=== PATIENT | male | born 1995 | race Caucasian/White ===

== ENCOUNTER 2017-07-27 17:35 | Emergency (ER) | payer OTHER ==
[~2017-07-27] VITALS: Ht 177.8 cm; Wt 60.0 kg
[~2017-07-27 17:35] MED LIST: MMW SWISH-SWAL
[2017-07-27 17:43] VITALS: BP 143/66; PULSE 91; RESP 18; TEMP 99; O2SAT 100
[2017-07-27] MEDS ORDERED: CEPH500T PO (20:17)
[2017-07-27] MEDS ORDERED: SMZ-TMP DS (20:17)
[2017-07-27 20:19] VITALS: BP 140/75; PULSE 83; RESP 16; TEMP 98.3; O2SAT 100
[2017-07-27] MEDS ORDERED: SODIUM CHLOR 0.9% 1000 ML INJ 1,000 ML IV SCH (20:27)
[2017-07-27] MEDS ORDERED: KETOROLAC TROMETHAMINE 30 MG/ML (IVP) VIAL IVP ONE (20:30)
--- NOTE | 2017-07-27 20:34 | PD ---
HPI Chief Complaint: Skin Problem Time Seen by Provider: 20:14 Travel History International Travel<30 days: No Contact w/Intl Traveler<30days: No Traveled to known affect area: No History of Present Illness HPI 21-year-old male with no significant past medical history presents for evaluation of an area of skin redness on the anterior right knee. It started as a small pimple looking lesion 6 days ago and since then he has had increased area of redness and tenderness, aching, worse when walking. He was seen yesterday at [facility] where he was prescribed Bactrim and Keflex. He is taking a total of 3 doses. The area of redness has worsened and this is what prompted evaluation. Denies any IV drug use. Denies any fevers or chills. He has no other complaints at this time. FORMERLY [facility], [facility]–1983 Past Medical History Medical History: Denies Significant Hx Past Surgical History Surgical History: No Previous Surgery Social History Alcohol Use: No Tobacco Use: No Substance Use: No Allergies-Medications (Allergen,Severity, Reaction): Coded Allergies: No Known Allergies (Unverified , 07/25/15) Reported Meds & Prescriptions Reported Meds & Active Scripts Active Reported [Smz-Tmp Ds] Cephalexin 500 Mg Tab 500 Mg PO Q12H Review of Systems Except as stated in HPI: all other systems reviewed are Neg Physical Exam Narrative GENERAL: Well-developed well-nourished male in no acute distress SKIN: Warm and dry. Examination of the right leg reveals an area of induration and erythema to the anterior right knee with a small posterior lesion. A wound culture was performed. There is no fluctuance. There is some proximal erythematous streaking up the medial right thigh. There is tender inguinal lymphadenopathy on the right side. HEAD: Atraumatic. Normocephalic. EYES: Pupils equal and round. No scleral icterus. No injection or drainage. ENT: No nasal bleeding or discharge. Mucous membranes pink and moist. NECK: Trachea midline. No JVD. CARDIOVASCULAR: Regular rate and rhythm. No murmur appreciated. RESPIRATORY: No accessory muscle use. Clear to auscultation. Breath sounds equal bilaterally. GASTROINTESTINAL: Abdomen soft, non-tender, nondistended. Hepatic and splenic margins not palpable. MUSCULOSKELETAL: Skin as noted above. There is no evidence of right knee joint effusion. The patient maintains full range of motion of the right knee. There is pain to the skin of the anterior right knee with range of motion. Distal sensation and pulses are preserved. Data Data Last Documented VS Vital Signs Date Time Temp Pulse Resp B/P (MAP) Pulse Ox O2 Delivery O2 Flow Rate FiO2 07/27/17 20:19 98.3 83 16 140/75 (96) 100 Orders Orders Complete Blood Count With Diff (07/27/17 20:27) Basic Metabolic Panel (Bmp) (07/27/17 20:27) Sodium Chlor 0.9% 1000 Ml Inj (Ns 1000 M (07/27/17 20:27) Ketorolac Inj (Toradol Inj) (07/27/17 20:30) Iv Access Insert/Monitor (07/27/17 20:27) Wound Culture And Gram Stain (07/27/17 20:27) Asp:No Reaction To [facility]/Vanc (Asp Crit (07/27/17 21:30) Asp: Does Not Meet Inpt Admit (Asp Crit: (07/27/17 21:30) Asp: Iv Antibiotics Admit Only (Asp Crit (07/27/17 21:30) Asp: Location Of [facility] Admin (Asp Crit: (07/27/17 21:30) Pharmacy Information (07/27/17 21:30) [facility] Inj ([facility] Inj) (07/27/17 21:22) Ed Discharge Order (07/27/17 21:24) Labs Laboratory Tests Test 07/27/17 20:33 White Blood Count 12.5 TH/MM3 Red Blood Count 4.92 MIL/MM3 Hemoglobin 14.2 GM/DL Hematocrit 42.7 % Mean Corpuscular Volume 86.9 FL Mean Corpuscular Hemoglobin 28.9 PG Mean Corpuscular Hemoglobin Concent 33.3 % Red Cell Distribution Width 12.8 % Platelet Count 274 TH/MM3 Mean Platelet Volume 7.3 FL Neutrophils (%) (Auto) 67.0 % Lymphocytes (%) (Auto) 20.1 % Monocytes (%) (Auto) 10.2 % Eosinophils (%) (Auto) 2.4 % Basophils (%) (Auto) 0.3 % Neutrophils # (Auto) 8.3 TH/MM3 Lymphocytes # (Auto) 2.5 TH/MM3 Monocytes # (Auto) 1.3 TH/MM3 Eosinophils # (Auto) 0.3 TH/MM3 Basophils # (Auto) 0.0 TH/MM3 CBC Comment DIFF FINAL Differential Comment Blood Urea Nitrogen 13 MG/DL Creatinine 1.07 MG/DL Random Glucose 93 MG/DL Calcium Level 8.7 MG/DL Sodium Level 138 MEQ/L Potassium Level 4.0 MEQ/L Chloride Level 102 MEQ/L Carbon Dioxide Level 28.8 MEQ/L Anion Gap 7 MEQ/L Estimat Glomerular Filtration Rate 87 ML/MIN MDM Medical Decision Making Medical Screen Exam Complete: Yes Emergency Medical Condition: Yes Medical Record Reviewed: Yes Differential Diagnosis Cellulitis, septic bursitis, septic arthritis, lymphangitis Narrative Course 21-year-old healthy male presents with worsening cellulitis to the anterior right knee despite starting Bactrim and Keflex yesterday. On examination he has cellulitis to the anterior right knee with a small pustular lesion, wound culture was obtained. There is no evidence of a septic arthritis or bursitis. Plan is for basic lab work, IV fluids. Lab work has been reviewed. WBC count is 12.5. His lab work is otherwise unremarkable. This patient will make an excellent [facility] candidate and thus it has been ordered. The Bactrim and Keflex will be discontinued. I discussed signs and symptoms that would warrant returning to the emergency room such as signs of sepsis or septic arthritis and he verbalizes understanding. He is stable for discharge. Wound cultures pending. Diagnosis Primary Impression: Cellulitis of knee, right Additional Instructions: Medication as prescribed. Warm compresses several times a day 20 minutes at a time to the affected area. Elevate. Return for new or worsening symptoms such as increasing redness, fevers, increasing swelling in the knee joint. Med/Other Pt SpecificInfo: No Change to Meds Disposition: 01 DISCHARGE HOME Condition: Stable Hilton Gibbs Jul 27, 2017 20:34
[2017-07-27 21:08] LABS: AUTOMATED NEUTROPHIL # 8.3 TH/MM3 (1.8-7.7); BASOPHIL % 0.3 % (0.0-2.0); EOSINOPHIL # 0.3 TH/MM3 (0-0.4); EOSINOPHIL % 2.4 % (0.0-4.0); HEMATOCRIT 42.7 % (39.0-51.0); HEMOGLOBIN 14.2 GM/DL (13.0-17.0); LYMPH % 20.1 % (9.0-44.0); LYMPHOCYTE # 2.5 TH/MM3 (1.0-4.8); MEAN CELL VOLUME 86.9 FL (80.0-100.0); MEAN CORPUSCULAR HEMOGLOBIN 28.9 PG (27.0-34.0); MEAN CORPUSCULAR HGB CONC 33.3 % (32.0-36.0); MEAN PLATELET VOLUME 7.3 FL (7.0-11.0); MONO % 10.2 % (0.0-8.0); MONOCYTE # 1.3 TH/MM3 (0-0.9); PLATELET COUNT 274 TH/MM3 (150-450); RED BLOOD COUNT 4.92 MIL/MM3 (4.50-5.90); RED CELL DISTRIBUTION WIDTH 12.8 % (11.6-17.2); WHITE BLOOD COUNT 12.5 TH/MM3 (4.0-11.0)
[2017-07-27 21:20] LABS: BICARBONATE 28.8 MEQ/L (21.0-32.0); CALCIUM 8.7 MG/DL (8.5-10.1); CREATININE 1.07 MG/DL (0.60-1.30)
[2017-07-27] MEDS ORDERED: DALBAVANCIN INJ 1,500 MG in DEXTROSE 5% IN WATE 500 ML INJ 500 ML IV STA ×2 (21:22)
--- NOTE | 2017-07-27 21:27 | PD ---
Physical Exam Date Seen by Provider: Jul 27, 2017 Data Data Last Documented VS Vital Signs Date Time Temp Pulse Resp B/P (MAP) Pulse Ox O2 Delivery O2 Flow Rate FiO2 07/27/17 20:19 98.3 83 16 140/75 (96) 100 Orders Orders Complete Blood Count With Diff (07/27/17 20:27) Basic Metabolic Panel (Bmp) (07/27/17 20:27) Sodium Chlor 0.9% 1000 Ml Inj (Ns 1000 M (07/27/17 20:27) Ketorolac Inj (Toradol Inj) (07/27/17 20:30) Iv Access Insert/Monitor (07/27/17 20:27) Wound Culture And Gram Stain (07/27/17 20:27) Asp:No Reaction To [facility]/Vanc (Asp Crit (07/27/17 21:30) Asp: Does Not Meet Inpt Admit (Asp Crit: (07/27/17 21:30) Asp: Iv Antibiotics Admit Only (Asp Crit (07/27/17 21:30) Asp: Location Of [facility] Admin (Asp Crit: (07/27/17 21:30) [facility] [place] [facility] Information ([facility] [place] [facility] (07/27/17 21:30) [facility] Inj ([facility] Inj) (07/27/17 21:22) Ed Discharge Order (07/27/17 21:24) Labs Laboratory Tests Test 07/27/17 20:33 White Blood Count 12.5 TH/MM3 Red Blood Count 4.92 MIL/MM3 Hemoglobin 14.2 GM/DL Hematocrit 42.7 % Mean Corpuscular Volume 86.9 FL Mean Corpuscular Hemoglobin 28.9 PG Mean Corpuscular Hemoglobin Concent 33.3 % Red Cell Distribution Width 12.8 % Platelet Count 274 TH/MM3 Mean Platelet Volume 7.3 FL Neutrophils (%) (Auto) 67.0 % Lymphocytes (%) (Auto) 20.1 % Monocytes (%) (Auto) 10.2 % Eosinophils (%) (Auto) 2.4 % Basophils (%) (Auto) 0.3 % Neutrophils # (Auto) 8.3 TH/MM3 Lymphocytes # (Auto) 2.5 TH/MM3 Monocytes # (Auto) 1.3 TH/MM3 Eosinophils # (Auto) 0.3 TH/MM3 Basophils # (Auto) 0.0 TH/MM3 CBC Comment DIFF FINAL Differential Comment Blood Urea Nitrogen 13 MG/DL Creatinine 1.07 MG/DL Random Glucose 93 MG/DL Calcium Level 8.7 MG/DL Sodium Level 138 MEQ/L Potassium Level 4.0 MEQ/L Chloride Level 102 MEQ/L Carbon Dioxide Level 28.8 MEQ/L Anion Gap 7 MEQ/L Estimat Glomerular Filtration Rate 87 ML/MIN MDM Medical Record Reviewed: Yes Supervised Visit with GHADA: Yes Narrative Course I, Dr. Zelaya, have reviewed the advance practice practitioner's documentation and am in agreement, met with the patient face to face, made the diagnosis, and the medical decision making was done by me. *My assessment and Findings: Cellulitis Mima Zelaya DO Jul 27, 2017 21:27
[2017-07-27] MEDS ORDERED: ASP: Only reason for admit - IV antibiotics OTHER ONE (21:30)
[2017-07-27] MEDS ORDERED: TETANUS/DIPHTHERIA TOXOID ADULT 0.5 ML VIAL IM ONE (21:30)
[2017-07-27] MEDS ORDERED: ASP: Location of Dalbavancin administration OTHER ONE (21:30)
[2017-07-27] MEDS ORDERED: ASP: No known hypersensitivity to Vanco, Telavancin, Dalbavancin OTHER ONE (21:30)
[2017-07-27] MEDS ORDERED: ASP: Does not meet inpatient admission criteria OTHER ONE (21:30)
[2017-07-27] MEDS ORDERED: MISCELLANEOUS PHARMACY INFORMATION XX ONE (21:30)
== END 2017-07-27 23:54 | disposition home or self-care (01) ==
LOC: NEPD 17:35
DX: L03.115 Cellulitis of right lower limb (principal); Z23 Encounter for immunization
CPT/HCPCS: 80048; 85025; 86403; 87070; 87186; 87205; 90471; 90714; 96374; 96375; 99284; J0875; J1885; J7030; J7060